=== PATIENT | male | born 1955 | race Caucasian/White ===

== ENCOUNTER 2022-03-20 14:59 | Outpatient (CLI) | payer MEDICARE, SELFPAY | END 2022-03-20 15:00 | disposition home or self-care (01) | LOC: SPT 15:00 | PROVIDERS: PCP Internal Medicine; Visit Provider Podiatrist Foot & Ankle Surgery | DX: Z46.89 Encounter for fitting and adjustment of other specified devices (principal); M79.672 Pain in left foot | CPT/HCPCS: 20550; 97760; 99204; L4397 ==

== ENCOUNTER → 2022-04-17 09:11 | Outpatient (BNVA) | payer MEDICARE, SELFPAY | PROVIDERS: PCP Internal Medicine; Visit Provider Podiatrist Foot & Ankle Surgery | DX: M72.2 Plantar fascial fibromatosis (principal); M24.572 Contracture, left ankle | CPT/HCPCS: 99213 ==

== ENCOUNTER → 2022-05-22 09:41 | Outpatient (BNVA) | payer MEDICARE, SELFPAY | PROVIDERS: PCP Internal Medicine; Visit Provider Podiatrist Foot & Ankle Surgery | DX: M72.2 Plantar fascial fibromatosis (principal); M24.572 Contracture, left ankle | CPT/HCPCS: 99212 ==

== ENCOUNTER → 2023-10-01 07:53 | Outpatient (BNVA) | payer MEDICARE, SELFPAY | PROVIDERS: PCP Internal Medicine; Visit Provider Nurse Practitioner Family | DX: L30.9 Dermatitis, unspecified (principal); L82.1 Other seborrheic keratosis; L82.0 Inflamed seborrheic keratosis; L57.0 Actinic keratosis; D22.4 Melanocytic nevi of scalp and neck | CPT/HCPCS: 11104; 17000; 17110; 99203 ==

== ENCOUNTER → 2023-10-14 08:53 | Outpatient (BNVA) | payer MEDICARE, SELFPAY | PROVIDERS: PCP Internal Medicine; Visit Provider Nurse Practitioner Family | DX: Z48.02 Encounter for removal of sutures (principal) | CPT/HCPCS: 99212 ==

== ENCOUNTER → 2024-04-28 09:20 | Outpatient (BNVA) | payer MEDICARE, SELFPAY | PROVIDERS: PCP Internal Medicine; Visit Provider Nurse Practitioner Family | DX: L50.1 Idiopathic urticaria (principal); L82.1 Other seborrheic keratosis; D22.4 Melanocytic nevi of scalp and neck; L82.0 Inflamed seborrheic keratosis; L29.89 Other pruritus; L53.8 Other specified erythematous conditions; Z78.9 Other specified health status; L91.8 Other hypertrophic disorders of the skin; R20.8 Other disturbances of skin sensation; L57.0 Actinic keratosis | CPT/HCPCS: 11200; 17000; 17110; 99213 ==

== ENCOUNTER → 2024-06-02 10:49 | Outpatient (BNVA) | payer MEDICARE, SELFPAY | PROVIDERS: PCP Family Medicine; Visit Provider Family Medicine | DX: Z13.6 Encounter for screening for cardiovascular disorders (principal); E11.9 Type 2 diabetes mellitus without complications; R35.0 Frequency of micturition; E03.9 Hypothyroidism, unspecified; Z51.81 Encounter for therapeutic drug level monitoring | CPT/HCPCS: 80053; 80061; 83036; 84153; 84439; 84443; 85025 ==

== ENCOUNTER → 2024-09-08 13:29 | Outpatient (BNVA) | payer MEDICARE, SELFPAY | PROVIDERS: PCP Family Medicine; Visit Provider Family Medicine | DX: E11.9 Type 2 diabetes mellitus without complications (principal) | CPT/HCPCS: 83036 ==

== ENCOUNTER → 2024-10-18 08:19 | Outpatient (BNVA) | payer MEDICARE, SELFPAY | PROVIDERS: PCP Family Medicine; Visit Provider Nurse Practitioner Family | DX: D69.2 Other nonthrombocytopenic purpura (principal); L50.1 Idiopathic urticaria; L82.1 Other seborrheic keratosis; D22.4 Melanocytic nevi of scalp and neck; B07.8 Other viral warts; R20.8 Other disturbances of skin sensation; L53.0 Toxic erythema; Z78.9 Other specified health status; L29.89 Other pruritus; L57.0 Actinic keratosis | CPT/HCPCS: 17000; 17110; 99213 ==

== ENCOUNTER → 2024-11-15 09:59 | Outpatient (BNVA) | payer MEDICARE, SELFPAY | PROVIDERS: PCP Family Medicine; Visit Provider Family Medicine | DX: E03.9 Hypothyroidism, unspecified (principal) | CPT/HCPCS: 84439; 84443 ==